=== PATIENT | male | born 1990 | race Two or more races ===

== ENCOUNTER 2018-05-25 05:38 | Emergency (ER) | payer SELFPAY ==
[2018-05-25 05:50] VITALS: PULSE 77; RESP 18; TEMP 97.8; O2SAT 100
[2018-05-25 05:58] VITALS: BP 149/91
--- NOTE | 2018-05-25 06:07 | ED PDOC ---
HPI: Psych/Substance Abuse Time Seen by Provider: 05/25/18 05:42 Chief Complaint (Nursing): Alcohol Ingestion Chief Complaint (Provider): Alcohol Ingestion History Per: Patient History/Exam Limitations: no limitations Onset/Duration Of Symptoms: Unknown Current Symptoms Are (Timing): Still Present Modifying Factor(s): Alcohol Additional Complaint(s): 27 y/o male with no significant PMHx brought to the ER by EMS and PD for alcohol intoxication. Patient states he went onto the roof of his building to smoke a cigarette when he got stuck. Patient admits to drinking alcohol today. Otherwise, patient denies suicidal ideation, homicidal ideation and drugs. Patient offers no complaints at this time and wishes to go home. PMD: no provider Past Medical History Reviewed: Historical Data, Nursing Documentation, Vital Signs Vital Signs: Last Vital Signs Temp 97.8 F 05/25/18 05:40 Pulse 77 05/25/18 05:40 Resp 18 05/25/18 05:40 BP 149/91 H 05/25/18 05:40 Pulse Ox 100 05/25/18 05:40 - Medical History PMH: No Chronic Diseases - Surgical History Surgical History: No Surg Hx - Family History Family History: States: No Known Family Hx - Allergies Allergies/Adverse Reactions: Allergies Allergy/AdvReac Type Severity Reaction Status Date / Time No Known Allergies Allergy Verified 05/25/18 06:04 Review of Systems ROS Statement: Except As Marked, All Systems Reviewed And Found Negative Psych: Positive for: Other (ALCOHOL INTOXICATION) Physical Exam - Reviewed Nursing Documentation Reviewed: Yes Vital Signs Reviewed: Yes - Physical Exam Appears: Positive for: No Acute Distress Head Exam: Positive for: ATRAUMATIC, NORMOCEPHALIC Skin: Positive for: Normal Color, Warm, Dry Eye Exam: Positive for: Normal appearance, EOMI, PERRL Neck: Positive for: Normal, Painless ROM, Supple Cardiovascular/Chest: Positive for: Regular Rate, Rhythm. Negative for: Murmur Respiratory: Positive for: Normal Breath Sounds. Negative for: Respiratory Distress Gastrointestinal/Abdominal: Positive for: Normal Exam, Soft. Negative for: Tenderness Extremity: Positive for: Normal ROM. Negative for: Deformity Neurologic/Psych: Positive for: Alert, Oriented (x3), Gait (STEADY). Negative for: Motor/Sensory Deficits, Other (SLURRED SPEECH) - ECG O2 Sat by Pulse Oximetry: 100 (RA) Pulse Ox Interpretation: Normal Medical Decision Making Medical Decision Making: Time: 607 A/P: Patient with mild alcohol intoxication -- Patient's friend is in the ED who will take him home. Patient is stable for discharge home. Scribe Attestation: Documented by Gladys Vásquez, acting as a scribe for Haile Auguste MD. Provider Scribe Attestation: All medical record entries made by the Scribe were at my direction and personally dictated by me. I have reviewed the chart and agree that the record accurately reflects my personal performance of the history, physical exam, medical decision making, and the department course for this patient. I have also personally directed, reviewed, and agree with the discharge instructions and disposition. Disposition - Clinical Impression Clinical Impression: Alcohol abuse - Disposition Referrals: Alcoholics Anonymous [Outside] Disposition: Routine/Home Disposition Time: 06:00 Condition: GOOD Instructions: Alcohol Use - When Is Drinking a Problem? Forms: [facility] (Belizean)
== END 2018-05-25 06:05 | disposition home or self-care (01) ==
LOC: H.ER 05:38
DX: F10.10 Alcohol abuse, uncomplicated (principal)